=== PATIENT | male | born 1955 | race Caucasian/White ===

== ENCOUNTER 2019-01-22 23:59 | Emergency (ER) | payer BC, OTHER ==
[2019-01-23 00:10] VITALS: BP 187/103; PULSE 90; TEMP 98.1; BMI 25.9
--- NOTE | 2019-01-23 00:16 | PDOC ---
History of Present Illness - General Chief Complaint: Injury Stated Complaint: LT ARM PAIN History Source: Patient, Family Exam Limitations: No Limitations - History of Present Illness Initial Comments: 01/23/19 06:45 Pt was walking earlier in the night with his in the [facility] section of the , where he lives, and he tripped on a metal plate on the road, that was not demarcated. He fell onto his left elbow, and shattered his olecranon. Pt has swelling at the olecranon and abrasion. He doesn't want a tetanus shot at this time. Timing/Duration: 1-3 hours Past History - Travel Traveled outside of the country in the last 30 days: No Close contact w/someone who was outside of country & ill: No - Past Medical History Allergies/Adverse Reactions: Allergies Allergy/AdvReac Type Severity Reaction Status Date / Time No Known Allergies Allergy Unverified 01/23/19 00:01 Home Medications: Ambulatory Orders Amlodipine Besylate [Norvasc -] 5 mg PO DAILY #30 tablet 01/23/19 Norvasc - 01/23/19 COPD: No HTN: Yes - Suicide/Smoking/Psychosocial Hx Smoking History: Current every day smoker Number of Cigarettes Smoked Daily: 2 Information on smoking cessation initiated: Yes Review of Systems - Review of Systems Constitutional: No: Symptoms Reported, See HPI, Chills, Diaphoresis, Fever, Loss of Appetite, Malaise, Night Sweats, Weakness, Weight Stable, Unintentional Wgt. Loss, Unexplained wgt Loss, Other HEENTM: No: Symptoms Reported, See HPI, Eye Pain, Blurred Vision, Tearing, Recent change in vision, Double Vision, Cataracts, Ear Pain, Ocular Prothesis, Ear Discharge, Nose Pain, Nose Congestion, Tinnitus, Nose Bleeding, Hearing Loss , Throat Pain, Throat Swelling, Mouth Pain, Dental Problems, Difficulty Swallowing, Mouth Swelling, Other Respiratory: No: Symptoms reported, See HPI, Cough, Orthopnea, Shortness of Breath, SOB with Exertion, SOB at Rest, Stridor, Wheezing, Productive cough, Hemoptysis, Other Cardiac (ROS): No: Symptoms Reported, See HPI, Chest Pain, Edema, Irregular Heart Rate, Lightheadedness, Palpitations, Syncope, Chest Tightness, Other ABD/GI: No: Symptoms Reported, See HPI, Abdominal Distended, Abd. Pain w/ defecation, Blood Streaked Bowels, Constipated, Diarrhea, Difficulty Swallowing , Nausea, Poor Appetite, Poor Fluid Intake, Rectal Bleeding, Vomiting, Indigestion, Abdominal cramping, Tarry Stools, Other : No: Symptoms Reported, See HPI, Burning, Dysuria, Discharge, Frequency, Flank Pain, Hematuria, Incontinence, Pain, Urgency, Testicular Mass, Testicular Swelling, Lesions, Testicular Pain, Other Musculoskeletal: Yes: Joint Pain, Joint Swelling, Joint Stiffness. No: Symptoms Reported, See HPI, Back Pain, Gout, Muscle Pain, Muscle Weakness, Neck Pain, Other Integumentary: No: Symptoms Reported, See HPI, Bruising, Change in Color, Change in Hair/Nails, Dryness, Erythema, Flushing, Lesions, Lumps, Pallor, Pruritus, Rash, Sweating, Other Neurological: No: Symptoms reported, See HPI, Headache, Numbness, Paresthesia, Pre-Existing Deficit, Seizure, Tingling, Tremors, Weakness, Unsteady Gait, Ataxia, Dizziness, Other Psychiatric: No: Anxiety, Depression, Frequent Crying, Stressors, Sleep Pattern Change, Emotional Problems, Mood Swings, Change in Appetite, Other Endocrine: No: Symptoms Reported, See HPI, Excessive Sweating, Flushing, Intolerance to Cold, Intolerance to Heat, Increased Hunger, Increased Thirst, Increased Urine, Unexplained Weight Gain, Unexplained Weight Loss, Change in Weight, Other *Physical Exam - Vital Signs Last Vital Signs Temp Pulse Resp BP Pulse Ox 98.1 F 90 16 187/103 H 98 01/23/19 00:05 01/23/19 00:05 01/23/19 00:05 01/23/19 00:05 01/23/19 00:05 - Physical Exam General Appearance: Yes: Nourished, Mild Distress HEENT: positive: EOMI, BRENDEN, Normal ENT Inspection, Normal Voice, Symmetrical, TMs Normal, Pharynx Normal Neck: positive: Trachea midline, Supple Respiratory/Chest: positive: Lungs Clear, Normal Breath Sounds. negative: Chest Tender Cardiovascular: positive: Regular Rhythm, Regular Rate, S1, S2 Gastrointestinal/Abdominal: positive: Normal Bowel Sounds, Flat, Soft Rectal Exam: positive: normal exam Musculoskeletal: positive: Normal Inspection. negative: CVA Tenderness Extremity: positive: Normal Capillary Refill, Normal Inspection, Normal Range of Motion, Tender Integumentary: positive: Normal Color, Dry, Warm Neurologic: positive: aquatic performer II-XII NML intact, Fully Oriented, Alert, Normal Mood/ Affect, Normal Response, Motor Strength 03/01 ED Treatment Course - RADIOLOGY Radiology Studies Ordered: Category Date Time Status ELBOW-LEFT [RAD] Stat Radiology 01/23/19 00:15 Ordered Medical Decision Making - Medical Decision Making 01/23/19 06:48 Pt has an olecranon fracture that will requrire surgical ORIF. He was placed in a posterior cast long arm, as well as a sling and he will ice it and follow with ortho for ORIF. Pt asked to return for fever, if it develops; bacitracin placed on the abraded skin on the elbow. *DC/Admit/Observation/Transfer Diagnosis at time of Disposition: Olecranon fracture - Discharge Dispostion Disposition: HOME Condition at time of disposition: Stable - Prescriptions Prescriptions: Amlodipine Besylate [Norvasc -] 5 mg PO DAILY #30 tablet - Referrals Referrals: Sharyn Avitia MD [Primary Care Provider] - Kiran Infante DO [Staff Physician] - Vitaly Gibson MD [Staff Physician] - - Patient Instructions Printed Discharge Instructions: How to Use a Sling, DI for Elbow Fracture - Post Discharge Activity Forms/Work/School Notes: Back to Work
[2019-01-23] MEDS ORDERED: amLODIPine BESYLATE 10 MG TABLET (FP) PO ONE (00:21)
[2019-01-23] MEDS ORDERED: amLODIPine BESYLATE 5 MG TABLET (FP) ONE (00:36)
--- NOTE | 2019-01-23 10:20 | EKG ---
Test Reason : Blood Pressure : / mmHG Vent. Rate : 073 BPM Atrial Rate : 073 BPM P-R Int : 166 ms QRS Dur : 088 ms QT Int : 394 ms P-R-T Axes : 063 034 046 degrees QTc Int : 434 ms NORMAL SINUS RHYTHM SEPTAL INFARCT , AGE UNDETERMINED ABNORMAL ECG NO PREVIOUS ECGS AVAILABLE Confirmed by SCOTT BRINK MD ([id number]) on 01/23/2019 10:19:56 AM Referred By: GT Confirmed By:SCOTT BRINK MD
== END 2019-01-23 01:36 | disposition home or self-care (01) ==
LOC: FER 23:59
PROC: 2W3DX2Z Immobilization of Left Lower Arm using Cast (ICD-10-PCS; principal; 2019-01-22)
DX: S52.022A Displaced fracture of olecranon process without intraarticular extension of left ulna, initial encounter for closed fracture (principal); W01.10XA Fall on same level from slipping, tripping and stumbling with subsequent striking against unspecified object, initial encounter; Y93.89 Activity, other specified; Y92.410 Unspecified street and highway as the place of occurrence of the external cause; F17.210 Nicotine dependence, cigarettes, uncomplicated; I10 Essential (primary) hypertension
CPT/HCPCS: 73070-TC-LT-FY; 93005; 99282-25